=== PATIENT | male | born 1985 | race African-American/Black ===

== ENCOUNTER 2018-12-17 18:14 | Emergency (ER) | payer MEDICAID ==
[~2018-12-17] VITALS: Ht 182.9 cm; Wt 95.0 kg
[2018-12-17] MEDS ORDERED: SODIUM CHLORIDE 0.9% 1,000 ML IV ONE (20:21)
[2018-12-17] MEDS ORDERED: MORPHINE SULFATE 4 MG/ML CPJ (NOT FOR IM USE) IV STA (20:21)
[2018-12-17] MEDS ORDERED: ONDANSETRON HCL 4MG/2ML INJ IV STA (20:21)
[2018-12-17] MEDS ORDERED: KETOROLAC 30MG/ML VIAL IV STA (20:21)
[2018-12-17 22:20] VITALS: BP 134/81
== END 2018-12-17 22:45 | disposition home or self-care (01) ==
LOC: EDBD 18:14 → ER 18:14
DX: S20.219A Contusion of unspecified front wall of thorax, initial encounter (principal); S10.93XA Contusion of unspecified part of neck, initial encounter; V89.2XXA Person injured in unspecified motor-vehicle accident, traffic, initial encounter; Y93.89 Activity, other specified; Y92.89 Other specified places as the place of occurrence of the external cause; Y99.8 Other external cause status
CPT/HCPCS: 70450; 71045; 71250; 72125; 96361; 96374; 96375; 99284; J1885; J2270; J2405; J7030; Z7610